=== PATIENT | female | born 1955 | race Two or more races ===

== ENCOUNTER 2016-12-06 11:41 | Emergency (ER) | payer BC ==
[2016-12-06] MEDS ORDERED: LIPITOR (11:56)
== END 2016-12-06 13:18 | disposition home or self-care (01) ==
LOC: SED 11:41
DX: S61.216A Laceration without foreign body of right little finger without damage to nail, initial encounter (principal); Z86.73 Personal history of transient ischemic attack (TIA), and cerebral infarction without residual deficits; Z98.890 Other specified postprocedural states; Z79.82 Long term (current) use of aspirin; Z88.5 Allergy status to narcotic agent; W27.4XXA Contact with kitchen utensil, initial encounter
CPT/HCPCS: 90471; 90715; 99283